=== PATIENT | female | born 1965 | race Caucasian/White ===

== ENCOUNTER 2018-07-27 22:37 | Emergency (ER) | payer OTHER ==
--- OUTSIDE RECORDS SUMMARY | 2018-07-27 22:40 | XMS REPORT | Summary of Care ---
:1965 Author Organization [facility] Address [address] [place], [place] [id number]- Encounter HQ Brandontr_harika(FIN) [id number] Date(s): 10/05/14 - 10/05/[address] [address]- [facility] Discharge Disposition: Home Attending Physician: Wilian Pandya MD Referring Physician: Wilian Pandya MD Vital Signs No data available for this section Problem List No data available for this section Allergies, Adverse Reactions, Alerts No data available for this section Medications No data available for this section Results CHEM PANEL Most recent to oldest [Reference Range]: 1 eGFR 88 mL/min/1.73m2 1 *NA* (10/05/14 11:31 AM) POC Creatinine [0.5-1.4 mg/dL] 0.8 mg/dL (10/05/14 11:31 AM) 1Result Comment: The eGFR is calculated using the CKD-EPI formula. In most young , healthy individualsthe eGFR will be >90 mL/min/1.73m2. The eGFR declines with age. An eGFR of 60-89 may be normal in some populations, particularly the elderly, for whom the CKD-EPI formula has not been extensively validated. Use of the eGFR is not recommended in the following populations: Individuals with unstable creatinine concentrations, including patients and those with serious co-morbid conditions. Patients with extremes in muscle mass or diet. The data above are obtained from the National Kidney Disease Education Program ( NKDEP) which additionally recommends that when the eGFR is used in patients with extremes of body mass index for purposesof drug dosing, the eGFR should be multiplied by the estimated BMI. Immunizations No data available for this section Procedures No data available for this section Social History No data available for this section Assessment and Plan No data available for this section
--- OUTSIDE RECORDS SUMMARY | 2018-07-27 22:40 | XMS REPORT | Summary of Care ---
:1965 Author Encounter ALFA Briggs_harika(MAI) [id number] Date(s): 02/08/14 - 02/08/14 [facility] Outpatient Imaging [address] Discharge Disposition: Home Physician Attending: Sin Stepehnson MD Reason for Visit 611.72 - [place] Problem List No data available for this section Allergies, Adverse Reactions, Alerts No data available for this section Medications No data available for this section Medications Administered During Your Visit No data available for this section Immunizations No data available for this section
--- OUTSIDE RECORDS SUMMARY | 2018-07-27 22:40 | XMS REPORT | Summary of Care ---
:1965 Author Organization [facility] Outpatient Imaging [facility] Address [address] [place] [address] Encounter HQ Encntr_alias(FIN) [id number] Date(s): 05/16/15 - 05/16/15 [facility] Outpatient Imaging [address] [phone] Discharge Disposition: Home Attending Physician: Sin Stephenson MD Vital Signs No data available for this section Problem List No data available for this section Allergies, Adverse Reactions, Alerts No data available for this section Medications No data available for this section Results No data available for this section Immunizations No data available for this section Procedures No data available for this section Social History No data available for this section Assessment and Plan No data available for this section
--- OUTSIDE RECORDS SUMMARY | 2018-07-27 22:40 | XMS REPORT | Summary of Care ---
:1965 Author Organization [facility] Outpatient Imaging [address] [address]- Encounter HQ Encntr_alias(FIN) [id number] Date(s): 06/18/18 - 06/18/18 [facility] Outpatient Imaging [address] [phone] Discharge Disposition: Home or Self Care Attending Physician: Sin Stephenson MD Referring Physician: Sin Stephenson MD Vital Signs No [...]
--- OUTSIDE RECORDS SUMMARY | 2018-07-27 22:40 | XMS REPORT | Summary of Care ---
:1965 Author Organization [facility] Outpatient Imaging [address] [address]- Encounter HQ Encntr_alias(FIN) [id number] Date(s): 06/26/17 - 06/26/17 [facility] Outpatient Imaging [address] [phone] Discharge Disposition: Home or Self Care Attending Physician: Sin Stephenson MD Vital Signs [...]
--- OUTSIDE RECORDS SUMMARY | 2018-07-27 22:40 | XMS REPORT | Summary of Care ---
:1965 Author Organization [facility] Outpatient Imaging [place] Address [id number] [place] [address]- [facility] HQ Rafir_harika([facility]) [id number] Date(s): 05/23/15 - 05/23/15 [facility] Outpatient Imaging [address] Discharge Disposition: Home Attending Physician: Sin Stephenson [...]
[2018-07-27 23:28] LABS: Absolute Lymphocytes (CBC) 2.2 K/uL (0.7-4.9); Absolute Monocytes 0.5 K/uL (0.1-1.3); Absolute Neutrophil 3.7 K/uL (1.8-8.0); Basophils % 0.5 % (0-1.3); Eosinophils % 1.8 % (0-4.4); Hematocrit 38.7 % (36.0-45.0); Lymphocytes % 33.9 % (15.3-44.8); MPV 8.2 fL (7.6-11.3); Monocytes % 7.3 % (3.3-12.3); RBC Red Blood Cell Count 4.36 M/uL (3.86-4.86)
[2018-07-27 23:42] LABS: BUN Blood Urea Nitrogen 9 mg/dL (7-18); Bicarbonate 27 mmol/L (21-32); Glucose Level 103 mg/dL (74-106); Potassium 3.4 mmol/L (3.5-5.1); Sodium Level 134 mmol/L (136-145); Troponin (Emerg Dept Use Only) < 0.02 ng/mL (0.0-0.045)
[2018-07-28 00:21] LABS: ALT/SGPT 55 U/L (12-78); AST/SGOT 105 U/L (15-37); Albumin 4.1 g/dL (3.4-5.0); Alkaline Phosphatase 99 U/L (45-117); Bilirubin Direct 0.2 mg/dL (0-0.2); Bilirubin Total 0.5 mg/dL (0.2-1.0); Lipase 152 U/L (73-393); Protein, Total 7.2 g/dL (6.4-8.2)
[2018-07-28 00:36] LABS: Urine Blood NEGATIVE (NEG); Urine Glucose NEGATIVE (NEG); Urine Protein NEGATIVE (NEG); Urine Specific Gravity 1.015 (1.005-1.030); Urine pH 8.5 (5.0-7.0)
--- NOTE | 2018-07-28 02:03 | ER ---
Nurse's Notes [facility] Name: Gisselle Haque Age: 52 yrs Sex: Female : 1965 Arrival Date: 07/27/2018 Time: 22:41 Bed 4 Private MD: Diagnosis: Chest pain, unspecified;Pain localized to upper abdomen Presentation: 07/27 22:43 Presenting complaint: Patient states: My chest started hurting about 30 minutes ago. ed1 Transition of care: patient was not received from another setting of care. Onset of symptoms was July 27, 2018. Risk Assessment: Do you want to hurt yourself or someone else? Patient reports no desire to harm self or others. Initial Sepsis Screen: Does the patient meet any 2 criteria? No. Patient's initial sepsis screen is negative. Does the patient have a suspected source of infection? No. Patient's initial sepsis screen is negative. Care prior to arrival: None. 22:43 Method Of Arrival: Wheelchair ed1 22:43 Acuity: SIDRA 2 ed1 Triage Assessment: 22:45 General: Appears uncomfortable, Behavior is calm, cooperative. Pain: Complains of pain ed1 in chest Pain radiates to back Pain currently is 10 out of 10 on a pain scale. Quality of pain is described as stabbing, Pain began 30 min ago. Cardiovascular: Reports chest pain. 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 - Social history:: Smoking status: Patient/guardian denies using tobacco. - Ebola Screening: : Patient negative for fever greater than or equal to 101.5 degrees Fahrenheit, and additional compatible Ebola Virus Disease symptoms Patient denies exposure to infectious person Patient denies travel to an Ebola-affected area in the 21 days before illness onset No symptoms or risks identified at this time. Screenin:55 Abuse screen: Denies threats or abuse. Denies injuries from another. Nutritional ak1 screening: No deficits noted. Tuberculosis screening: No symptoms or risk factors identified. Fall Risk None identified. Assessment: 23:32 General: Appears in no apparent distress. Behavior is calm, cooperative. Pain: ak1 Complains of pain in right rib area. Neuro: No deficits noted. Cardiovascular: Reports pain under right ribs, sudden onset. pt stated once arriving to ER4 the pain had diminished. Respiratory: Reports shortness of breath due to pain in right rib area Airway is patent Breath sounds are clear bilaterally. GI: No signs and/or symptoms were reported involving the gastrointestinal system. : No signs and/or symptoms were reported regarding the genitourinary system. EENT: No signs and/or symptoms were reported regarding the EENT system. Derm: No signs and/or symptoms reported regarding the dermatologic system. Musculoskeletal: No signs and/or symptoms reported regarding the musculoskeletal system. 07/28 00:17 Reassessment: Patient appears in no apparent distress at this time. Patient and/or cc3 family updated on plan of care and expected duration. Pain level reassessed. Patient is alert, oriented x 3, equal unlabored respirations, skin warm/dry/pink. 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 00:34 Reassessment: Patient appears in no apparent distress at this time. Patient and/or cc3 family updated on plan of care and expected duration. Pain level reassessed. Patient is alert, oriented x 3, equal unlabored respirations, skin warm/dry/pink. Patient came back from CT scan department, awaiting result. 01:46 Reassessment: Patient appears in no apparent distress at this time. pt and family ak1 informed of wait for CT results. 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 Vital Signs: 07/27 22:45 BP 123 / 76; Pulse 79; Resp 17; Pulse Ox 100% on R/A; Weight 59.87 kg; Height 5 ft. 8 ed1 in. (172.72 cm); Pain 10/10; 22:55 Temp 97.7(O); ak1 23:00 BP 114 / 74; Pulse 73; Resp 19; Temp 98; Pulse Ox 99% on R/A; ak1 07/28 01:19 BP 106 / 82; Pulse 79; Resp 18; Pulse Ox 100% on R/A; Pain 2/10; ak1 02:05 BP 117 / 75; Pulse 73; Resp 18; Pulse Ox 100% on R/A; ak1 07/27 22:45 Body Mass Index 20.07 (59.87 kg, 172.72 cm) ed1 ED Course: 07/27 22:41 Patient arrived in ED. ds1 22:44 Triage completed. ed1 22:45 Arm band placed on. ed1 22:46 Amelia Eller RN is Primary Nurse. ak1 22:53 Salty Sanchez MD is Attending Physician. gs 22:55 Patient maintains SpO2 saturation greater than 95% on room air. ak1 22:56 Patient has correct armband on for positive identification. Placed in gown. Bed in low ak1 position. Call light in reach. Side rails up X 1. Adult w/ patient. surveillance system monitor on. Pulse ox on. NIBP on. Door closed. Warm blanket given. 23:05 Inserted saline lock: 20 gauge in left antecubital area, using aseptic technique. Blood cc3 collected. 23:28 X-ray completed. Portable x-ray completed in exam room. Patient tolerated procedure kw well. 23:28 Radiology exam delayed due to IV insertion attempt and/or patient not having kw appropriate IV at this time. pt needed to use restroom. 23:30 XRAY Chest (1 view) In Process Unspecified. EDMS 05/23 00:33 CT completed. Patient tolerated procedure well. Patient moved to CT via stretcher. Patient moved back from CT. 00:44 CT Chest, Abdomen, Pelvis - W/Contrast In Process Unspecified. EDMS 02:04 No provider procedures requiring assistance completed. ak1 02:10 IV discontinued, intact, bleeding controlled, No redness/swelling at site. Pressure cc3 dressing applied. Administered Medications: 02:08 Drug: TORadol - Ketorolac 15 mg Route: IVP; Site: left antecubital; ak1 02:11 Follow up: Response: Medication administered at discharge. ak1 Outcome: 02:02 Discharge ordered by . gs 02:04 Condition: stable ak1 02:10 Discharged to home ambulatory, with family. cc3 02:10 Discharge instructions given to patient, Instructed on discharge instructions, follow up and referral plans. Demonstrated understanding of instructions, follow-up care. 02:16 Patient left the ED. cc3 Signatures: Dispatcher [employer] Bill Fermin Demi ds1 Haley Lee RN RN ed1 Candelaria Tucker Amber, RN RN ak1 Salty Sanchez MD MD gs Cordel, Charlene cc3
--- NOTE | 2018-07-28 02:03 | EDPHYS ---
Physician Documentation [facility] Name: Gisselle Haque Age: 52 yrs Sex: Female : 1965 Arrival Date: 07/27/2018 Time: 22:41 Bed 4 Private MD: ED Physician Salty Sanchez HPI: 07/28 01:45 This 52 yrs old Female presents to ER via Wheelchair with complaints of Chest gs Pain. 01:45 The patient or guardian reports chest pain that is located primarily in the diaphragm. gs Onset: acutely, just prior to arrival. The pain radiates to right breast. Associated signs and symptoms: Pertinent positives: abdominal pain, Pertinent negatives: cough, vomiting. The chest pain is described as sharp. Duration: The patient or guardian reports a single episode, that is now resolved. Modifying factors: The symptoms are alleviated by nothing. the symptoms are aggravated by nothing. Severity of pain: At its worst the pain was severe in the emergency department the pain has improved markedly. The patient has not experienced similar symptoms in the past. 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 - Social history:: Smoking status: Patient/guardian denies using tobacco. - Ebola Screening: : Patient negative for fever greater than or equal to 101.5 degrees Fahrenheit, and additional compatible Ebola Virus Disease symptoms Patient denies exposure to infectious person Patient denies travel to an Ebola-affected area in the 21 days before illness onset No symptoms or risks identified at this time. ROS: 07/28 01:45 All other systems are negative. gs Exam: 01:45 Head/Face: Normocephalic, atraumatic. Eyes: Pupils equal round and reactive to light, gs extra-ocular motions intact. Lids and lashes normal. Conjunctiva and sclera are non-icteric and not injected. Cornea within normal limits. Periorbital areas with no swelling, redness, or edema. ENT: Nares patent. No nasal discharge, no septal abnormalities noted. Tympanic membranes are normal and external auditory canals are clear. Oropharynx with no redness, swelling, or masses, exudates, or evidence of obstruction, uvula midline. Mucous membranes moist. Neck: Trachea midline, no thyromegaly or masses palpated, and no cervical lymphadenopathy. Supple, full range of motion without nuchal rigidity, or vertebral point tenderness. No Meningismus. Chest/axilla: Normal chest wall appearance and motion. Nontender with no deformity. No lesions are appreciated. Cardiovascular: Regular rate and rhythm with a normal S1 and S2. No gallops, murmurs, or rubs. Normal PMI, no JVD. No pulse deficits. Respiratory: Lungs have equal breath sounds bilaterally, clear to auscultation and percussion. No rales, rhonchi or wheezes noted. No increased work of breathing, no retractions or nasal flaring. Back: No spinal tenderness. No costovertebral tenderness. Full range of motion. Skin: Warm, dry with normal turgor. Normal color with no rashes, no lesions, and no evidence of cellulitis. MS/ Extremity: Pulses equal, no cyanosis. Neurovascular intact. Full, normal range of motion. Neuro: Awake and alert, GCS 15, oriented to person, place, time, and situation. Cranial nerves II-XII grossly intact. Motor strength 5/5 in all extremities. Sensory grossly intact. Cerebellar exam normal. Normal gait. 01:45 Constitutional: The patient appears alert, awake. 01:45 ECG was reviewed by the Attending Physician. 01:45 Abdomen/GI: Palpation: moderate abdominal tenderness, in the epigastric area and right upper quadrant. Vital Signs: 07/27 22:45 BP 123 / 76; Pulse 79; Resp 17; Pulse Ox 100% on R/A; Weight 59.87 kg; Height 5 ft. 8 ed1 in. (172.72 cm); Pain 10/10; 22:55 Temp 97.7(O); ak1 23:00 BP 114 / 74; Pulse 73; Resp 19; Temp 98; Pulse Ox 99% on R/A; ak1 07/28 01:19 BP 106 / 82; Pulse 79; Resp 18; Pulse Ox 100% on R/A; Pain 2/10; ak1 02:05 BP 117 / 75; Pulse 73; Resp 18; Pulse Ox 100% on R/A; ak1 07/27 22:45 Body Mass Index 20.07 (59.87 kg, 172.72 cm) ed1 MDM: 07/27 23:49 Patient medically screened. 07/28 01:45 Differential diagnosis: coronary artery disease cholecystitis, pneumonia, pulmonary gs embolus. Data reviewed: vital signs, nurses notes, lab test result(s), EKG, radiologic studies. Counseling: I had a detailed discussion with the patient and/or guardian regarding: the historical points, exam findings, and any diagnostic results supporting the discharge/admit diagnosis, lab results, radiology results, the need for outpatient follow up. Response to treatment: the patient's symptoms have markedly improved after treatment, and as a result, I will discharge patient. 07/27 22:54 Order name: Basic Metabolic Panel; Complete Time: 00:46 07/27 22:54 Order name: CBC with Diff; Complete Time: 00:46 07/27 22:54 Order name: Troponin (emerg Dept Use Only); Complete Time: 00:46 07/27 23:29 Order name: Urine Dipstick--Ancillary (enter results); Complete Time: 00:46 ar5 07/27 22:54 Order name: XRAY Chest (1 view) 07/27 22:54 Order name: EKG; Complete Time: 22:55 07/27 22:54 Order name: Cardiac monitoring; Complete Time: 22:56 07/27 22:54 Order name: EKG - Nurse/Tech; Complete Time: 22:56 07/27 23:51 Order name: CT Chest, Abdomen, Pelvis - W/Contrast 07/28 00:18 Order name: Liver (Hepatic) Function; Complete Time: 00:46 EDMS 07/28 00:18 Order name: Lipase; Complete Time: 00:46 EDMS 07/27 22:54 Order name: IV Saline Lock; Complete Time: 23:14 07/27 22:54 Order name: Labs collected and sent; Complete Time: 23:15 07/27 22:54 Order name: O2 Per Protocol; Complete Time: 22:56 07/27 22:54 Order name: O2 Sat Monitoring; Complete Time: 22:56 07/27 22:54 Order name: Urine Dipstick-Ancillary (obtain specimen); Complete Time: 23:26 EC:45 Rate is 73 beats/min. Rhythm is regular. MA interval is normal. QRS interval is normal. QT interval is normal. T waves are Normal. No ST changes noted. Clinical impression: Abnormal EKG without significant change. Interpreted by me. Administered Medications: 02:08 Drug: TORadol - Ketorolac 15 mg Route: IVP; Site: left antecubital; [facility] 02:11 Follow up: Response: Medication administered at discharge. [facility] Disposition: 07/28/18 02:02 Discharged to Home. Impression: Chest pain, unspecified, Pain localized to upper abdomen. - Condition is Stable. - Discharge Instructions: Abdominal Pain, Adult, Nonspecific Chest Pain. - Work release form, Medication Reconciliation Form, Thank You Letter, Antibiotic Education, Prescription Opioid Use form. - Follow up: Private Physician; When: 2 - 3 days; Reason: Re-evaluation by your physician. Signatures: Dispatcher [employer] [facility] Haley Lee RN RN ed Amelia Eller RN RN ak1 Salty Sanchez MD MD mEily Caruso cc3 Corrections: (The following items were deleted from the chart) 07/27 23:10 22:54 Urine Test ordered. [facility] 07/28 00:17 07/27 23:52 HEPATIC FUNCTION+C.LAB.BRZ ordered. [facility] 07/28 00:17 07/27 23:52 LIPASE+C.LAB.BRZ ordered. [facility] 07/28 02:16 02:02 07/28/2018 02:02 Discharged to Home. Impression: Chest pain, unspecified; Pain cc3 localized to upper abdomen. Condition is Stable. Forms are Medication Reconciliation Form, Thank You Letter, Antibiotic Education, Prescription Opioid Use. Follow up: Private Physician; When: 2 - 3 days; Reason: Re-evaluation by your physician.
[2018-07-28] MEDS ORDERED: KETOROLAC 30 MG/ML INJ ONE (02:20)
--- NOTE | 2018-07-28 08:03 | RAD REPORT ---
EXAM DESCRIPTION: RAD - Chest Single View - 07/27/2018 11:30 pm CLINICAL HISTORY: Chest pain COMPARISON: None. TECHNIQUE: AP portable chest image was obtained 2326 hours . FINDINGS: Lungs are clear. Heart and vasculature are normal. No measurable pleural effusion and no p neumothorax. No acute bony abnormality seen. No acute aortic findings suspected. IMPRESSION: No acute cardiopulmonary process.
--- NOTE | 2018-07-28 09:21 | RAD REPORT ---
EXAM DESCRIPTION: CT - Chest Abdomen Pelvis W Cont - 07/28/2018 2:08 am CLINICAL HISTORY: 52 years Female ab pain;Chest pain COMPARISON: None TECHNIQUE: Images were obtained in axial, sagittal, and coronal planes. Intravenous contrast was adm inistered. This exam was performed according to our departmental dose-optimization program which includes use of Automated Exposure Control, adjustment of the mA and/or kV according to patient size and/or use of i terative reconstruction technique. FINDINGS: CT chest: No filling defects pulmonary arteries bilaterally. No aortic dissection or dilat ation. No pericardial or pleural effusions bilaterally. No adenopathy. No pneumothorax. No lung paren chymal infiltrates or nodules seen. No acute osseous abnormality involving the thorax. CT abdomen and pelvis: No abnormality involving the liver, spleen, pancreas, gallbladder, or adrenal glands bilaterally. No obstructing renal calcifications bilaterally. No hydronephrosis bilaterally. U nremarkable bladder. No abnormality abdominal aorta or portal vein. No adenopathy or abnormal fluid c ollections seen. Appendix not well identified however no secondary signs for appendicitis. No bowel o bstruction, perforation, or inflammation. Marked constipation. No acute osseous abnormality lumbar sp ine or pelvis. IMPRESSION: No acute intrathoracic abnormality. No acute intra-abdominal abnormality. Electronically signed by: Alis Cortes MD 07/28/2018 12:54 AM CDT Due to temporary technical issues with the PACS/Fluency reporting system, reports are being signed by the in house radiologist as a courtesy to ensure prompt reporting. The interpreting radiologist is f ully responsible for the content of the report.
--- NOTE | 2018-07-28 16:32 | EKG ---
Test Date: 2018-07-27 Test Time: 22:48:18 It Systems Administrator: CHERI MEASUREMENT RESULTS: Intervals: Rate: 73 NE: 166 QRSD: 80 QT: 420 QTc: 462 Dewey: P: 66 NE: 166 QRS: 69 T: 72 INTERPRETIVE STATEMENTS: Normal sinus rhythm Possible Left atrial enlargement Borderline ECG No previous ECG available for comparison Electronically Signed On 07-28-18 16:31:24 CDT by Robbie Tejeda
== END 2018-07-28 02:16 | disposition home or self-care (01) ==
LOC: ER 22:37
DX: R07.9 Chest pain, unspecified (principal); R10.9 Unspecified abdominal pain; E03.9 Hypothyroidism, unspecified
CPT/HCPCS: 36415; 71045; 71260; 74177; 80048; 80076; 81003; 83690; 84484; 85025; 93005; 96374; 99285; Q9967